=== PATIENT | female | born 1960 | race Caucasian/White ===

== ENCOUNTER → 2019-01-23 | Outpatient (CLI) | payer OTHER ==
--- NOTE | 2019-01-23 16:47 | REP ---
LEFT KNEE SERIES, FIVE VIEWS: Five views of the left knee are preformed. There is no acute fracture or dislocation. There is mild medial joint space narrowing and lateral patellofemoral compartment narrowing. There is a small joint effusion. IMPRESSION: Mild degenerative changes. Small joint effusion. No fracture. Electronically Signed by Clifton Lafleur MD 01/24/2019 10:29 A
== END ==
LOC: M LRY 16:12
PROVIDERS: ATTEND Physician Assistant
DX: M25.562 Pain in left knee (principal); M17.12 Unilateral primary osteoarthritis, left knee; M25.462 Effusion, left knee

== ENCOUNTER 2019-02-05 02:54 | Emergency (ER) | payer OTHER ==
[~2019-02-05] VITALS: Ht 170.2 cm; Wt 90.0 kg
[2019-02-05] MEDS ORDERED: MORPHINE 4 MG/ML 1ML VIAL/SYRINGE (J2270) IM ONE (05:00)
[2019-02-05] MEDS ORDERED: PRED20TA PO (05:10)
[2019-02-05] MEDS ORDERED: KETO10TAB PO (05:30)
[2019-02-05] MEDS ORDERED: NORCO 5/325MG TABLET (BULK FOR ED) PO ONE (05:30)
[2019-02-05 05:42] VITALS: BP 145/77
--- NOTE | 2019-02-05 09:00 | REP ---
Right shoulder two view: Single view obtained portably. History: Pain. Findings: A single portably obtained AP view of the right shoulder demonstrates a periarticular soft tissue calcification consistent with calcific tendonitis or bursitis. The glenohumeral and acromioclavicular joints appear to be well aligned on the single view. No fractures seen. Electronically Signed by Pablo Mcgarry MD 02/05/2019 09:04 A
== END 2019-02-05 05:44 | disposition home or self-care (01) ==
LOC: M ED 02:54
DX: M75.21 Bicipital tendinitis, right shoulder (principal); I10 Essential (primary) hypertension
CPT/HCPCS: 73020; 96372; 99284; J2270

== ENCOUNTER 2020-02-06 09:51 | Emergency (ER) | payer OTHER, SELFPAY ==
[~2020-02-06 09:51] MED LIST changes: +NS 1,000 ML IV ONE
[2020-02-06] MEDS ORDERED: EPINEPHrine 1MG/10ML SYRINGE 1.5IN ONE (09:52)
[2020-02-06 09:55] VITALS: O2SAT 93
[2020-02-06] MEDS ORDERED: EPINEPHrine 1MG/10ML SYRINGE 1.5IN IV STA ×2 (10:07→10:10)
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
== END 2020-02-06 10:21 | disposition expired ==
LOC: M ED 09:51
DX: I46.8 Cardiac arrest due to other underlying condition (principal); T07.XXXA Unspecified multiple injuries, initial encounter; S22.42XA Multiple fractures of ribs, left side, initial encounter for closed fracture; V49.40XA Driver injured in collision with unspecified motor vehicles in traffic accident, initial encounter; Z79.899 Other long term (current) drug therapy
CPT/HCPCS: 71045; 86850; 86900; 86901; 86920; 96361; 99284; P9016

== ENCOUNTER → 2020-02-06 | Outpatient (REF) ==
[~2020-02-06] MED LIST: KETO10TAB PO; PRED20TA PO
[2020-02-06 18:50] LABS: INFLUENZA A AMPLIFICATION NEGATIVE (NEGATIVE); INFLUENZA B AMPLIFICATION NEGATIVE (NEGATIVE)
--- NOTE | 2020-02-14 07:43 | REP ---
PORTABLE SKULL SERIES: 2-VIEWS HISTORY: odd shoe examiner request. FINDINGS: Frontal and lateral views of the calvarium demonstrate orotracheal and oroesophageal tubes. The bony calvarium is intact. No skull fracture is seen. No mandibular or facial fracture is appreciated. No bony destructive lesion or other opaque foreign body seen. MTDD
--- NOTE | 2020-02-14 07:44 | REP ---
AP PELVIS: SINGLE VIEW HISTORY: senior examiner request. FINDINGS: There are nondisplaced fractures of the superior and inferior pubic rami bilaterally. No iliac bone fracture is seen. No proximal femur fracture is appreciated. Sacral alar lines are less than optimally seen due to bowel gas. No definite sacral fracture is seen. Sacroiliac (SI) joints are normal in appearance. There is degenerative disc disease at L4-5. IMPRESSION: There appear to be bilateral superior and inferior pubic ramus fractures bilaterally. A left femoral vascular line is noted in place. MTDD
== END ==
LOC: M LAB 12:45
DX: Z02.89 Encounter for other administrative examinations (principal); Z20.828 Contact with and (suspected) exposure to other viral communicable diseases